=== PATIENT | female | born 1960 | race African-American/Black ===

== ENCOUNTER 2019-01-03 08:03 | Emergency (ER) | payer SELFPAY ==
[2019-01-03] MEDS ORDERED: Albuterol Sulfate 2.5 mg/0.5 ml Neb ONE (08:36)
[2019-01-03 08:38] LABS: #Basophils 0.1 thou/uL (0.0-0.2); #Eosinphils 1.5 thou/uL (0.0-0.7); #Monocytes 0.8 thou/uL (0.11-0.59); #Neutrophils 5.1 thou/uL (1.40-6.50); %Basophils 0.9 % (0.0-1.0); %Eosinophils 14.3 % (0.0-10.0); %Lymphocytes 28.6 % (21.0-51.0); %Monocytes 7.4 % (0.0-10.0); %Neutrophils 48.7 % (42.0-75.0); Mean Corpuscular HGB CONC 33.5 g/dL (32.0-36.0); Mean Corpuscular Volume 86.5 fL (78.0-98.0); Mean Platelet Volume 8.2 fL (7.4-10.4); Platelet Count 250 thou/uL (130-400); RBC Distribution Width 14.7 % (11.5-14.5); Red Blood Cell (RBC) Count 5.15 mill/uL (4.20-5.40); White Blood Cell (WBC) Count 10.4 thou/uL (4.8-10.8)
[2019-01-03 09:03] LABS: ALT (SGPT) 12 U/L (8-55); AST (SGOT) 18 U/L (5-34); Albumin 4.3 g/dL (3.5-5.0); Alkaline Phosphatase 103 U/L (40-150); Anion Gap 15 mmol/L (10-20); BUN (Urea Nitrogen) 7 mg/dL (9.8-20.1); Bilirubin, Total 0.4 mg/dL (0.2-1.2); Calc. Creatinine Clearance 0 mL/min (70-130); Calcium 9.7 mg/dL (7.8-10.44); Carbon Dioxide 23 mmol/L (22-29); Chloride 107 mmol/L (98-107); Estimated GFR-MDRD 78; Globulin 4.1 g/dL (2.4-3.5); Glucose 106 mg/dL (70-105); Potassium 4.6 mmol/L (3.5-5.1); Protein, Total 8.4 g/dL (6.0-8.3); Sodium 140 mmol/L (136-145)
--- NOTE | 2019-01-03 10:27 | RAD ---
PORTABLE CHEST: Date: 01/03/19 INDICATION: Cough and congestion. FINDINGS: Heart size upper normal. Vasculature mildly prominent. No focal infiltrate or significant effusion. IMPRESSION: No acute process apparent. POS: [facility]
[2019-01-07 08:28] LABS: Bicarbonate (HCO3v) 25.6 mmol/L (22.0-28.0); CO2 Tension (PvCO2) 43.4 mmHg (40.0-50.0); Chloride 112 mmol/L (98-107); Hemoglobin - Calc 17.4 g/dL (12.0-16.0); O2 Tension (PvO2) 42.3 mmHg (35.0-45.0); Sodium 135 mmol/L (138-145); pH (Venous) 7.378 (7.320-7.430); vO2 Saturation-calc 76.5 % (60.0-85.0)
[2019-01-07 08:29] LABS: Calcium, Ionized 0.81 mmol/L (See Comments:); T. Carbon Dioxide 26.9 mmol/L (22.0-28.0)
== END 2019-01-03 10:15 | disposition home or self-care (01) ==
LOC: ERS 08:03
DX: J44.1 Chronic obstructive pulmonary disease with (acute) exacerbation (principal); E11.9 Type 2 diabetes mellitus without complications; I10 Essential (primary) hypertension; F17.200 Nicotine dependence, unspecified, uncomplicated; Z79.899 Other long term (current) drug therapy
CPT/HCPCS: 71045; 80053; 83880; 84484; 85025; 87804; 93005; 94640; J7611; J7620